=== PATIENT | male | born 1950 | race Caucasian/White ===

== ENCOUNTER 2019-05-23 08:00 | Day surgery (SDC) | payer MEDICARE, OTHER ==
[~2019-05-23] VITALS: Ht 185.4 cm; Wt 122.0 kg
[~2019-05-23 08:00] MED LIST: CREON PO; FISH1000 PO; FLAX PO; Fenofibrate134 MG PO; GLIP10 PO; INSLI75/25; LEVEMIR FL100 UNIT/1; LISI20 PO; LISI5 PO; Lovenox150 MG/ML INJ; METF500 PO; METO25ER PO; OMEG1CAP30; OMEG1CAP30 PO; OSTERA TABLET1 EACH PO; Prinivil10 MG PO; VITAMIN D5000 UNIT PO; WARF5 PO
--- NOTE | 2019-05-23 08:56 | NUR ---
Pt with clear lungs irregular heart beat and slight murmur.
--- NOTE | 2019-05-23 11:40 | NUR ---
TO RECOVERY ROOM BATHROOM VIA WHEELCHAIR. NO C/O CHEST PAIN. AGGRASTAT CONTINUES AT 22.5 ML/HR. TR BAND INTACT WITH 13 CC AIR.
--- NOTE | 2019-05-23 12:00 | NUR ---
livalo and plavix called to [facility]
[2019-05-23] MEDS ORDERED: CLOP75 PO (13:13)
[2019-05-23] MEDS ORDERED: LIVALO4 MG PO (13:13)
[2019-05-23] MEDS ORDERED: Aspirin EC81 MG PO (13:14)
--- NOTE | 2019-05-23 14:14 | NUR ---
DISCHARGE INSTRUCTIONS GIVEN TO PT AND WITH VERBAL AND WRITTEN UNDERSTANDING.
--- NOTE | 2019-05-23 14:27 | NUR ---
Dr. Hilario here to see pt.
--- NOTE | 2019-05-23 15:43 | NUR ---
2 CC AIR REMOVED FROM TR BAND. NO BLEEDING AT SITE.
--- NOTE | 2019-05-23 16:30 | NUR ---
Remainder of air removed from TR BAND. NO BLEEDING AT SITE. DRESSED FOR DISCHARGE.
--- NOTE | 2019-05-23 16:49 | NUR ---
CONNIE YADAV RN TO ASSUME CARE OF PATIENT.
--- NOTE | 2019-05-23 17:38 | NUR ---
IV DC'D, CATH INTACT. PT OUT TO CAR VIA W/C. PT AND SPOUSE HAVE VERBALIZED UNDERSTANDING OF DC INSTRUCTIONS AND FOLLOW UP INFO. VSS AT TIME OF DISCHARGE.
== END 2019-05-23 17:00 | disposition home or self-care (01) ==
LOC: MHTC 08:00
DX: I25.119 Atherosclerotic heart disease of native coronary artery with unspecified angina pectoris (principal); I25.84 Coronary atherosclerosis due to calcified coronary lesion; Z88.6 Allergy status to analgesic agent; Z88.8 Allergy status to other drugs, medicaments and biological substances; Z79.899 Other long term (current) drug therapy
CPT/HCPCS: 82947; 93454; C1725; C1769; C1874; C1887; C1894; C9600; J1644; J2250; J3010; J3246; J7030; Q9967

== ENCOUNTER 2020-08-18 11:48 | Emergency (ER) | payer MEDICARE, OTHER ==
[~2020-08-18] VITALS: Ht 182.9 cm; Wt 114.8 kg
[~2020-08-18 11:48] MED LIST changes: -ALBU90OI INH; -CLOP75 PO; -METO50ER PO; -NITR.4SL SL; -NITROGLYCERIN TD; -NOVOLOG MI100 UNIT/2 SC; -PRALUENT P75 MG/1 ML SC; -Prinivil10 MG PO; -WARF5 PO
[2020-08-18 12:29] LABS: BASOPHILS ABSOLUTE AUTO 0.01 K/mm3 (0.00-0.23); BASOPHILS PERCENT AUTO 0 % (0-2); EOSINOPHILS ABSOLUTE AUTO 0.04 K/mm3 (0.00-0.68); EOSINOPHILS PERCENT AUTO 1 % (0-6); Hematocrit 46.8 % (37.0-53.0); Hemoglobin 15.4 g/dL (13.5-17.5); IMMATURE GRAN ABSOLUTE AUTO 0.04 K/mm3 (0.00-0.10); IMMATURE GRAN PERCENT AUTO 1 % (0-1); LYMPHOCYTES ABSOLUTE AUTO 0.71 K/mm3 (0.84-5.20); LYMPHOCYTES PERCENT AUTO 19 % (21-46); MONOCYTES ABSOLUTE AUTO 0.35 K/mm3 (0.16-1.47); MONOCYTES PERCENT AUTO 9 % (4-13); Mean Corpuscular HGB 30.4 pg (26.0-34.0); Mean Corpuscular HGB Conc 32.9 g/dL (31.5-36.5); Mean Corpuscular Volume 93 fL (80-100); Mean Platelet Volume 9.9 fL (9.1-12.4); NEUTROPHILS ABSOLUTE AUTO 2.69 K/mm3 (1.96-9.15); NEUTROPHILS PERCENT AUTO 70 % (41-73); Platelet Count 106 K/mm3 (150-400); RDW Coefficient Variation 14.2 % (11.7-14.2); RDW Standard Deviation 48.7 fL (35.1-46.3); Red Blood Cell Count 5.06 M/mm3 (4.30-5.90); White Blood Cell Count 3.84 K/mm3 (4.00-11.30)
[2020-08-18 12:42] LABS: International Normalized Ratio 1.06; Prothrombin Time Results 11.3 Sec (9.7-11.5)
[2020-08-18] MEDS ORDERED: NITR.4SL SL (12:58)
[2020-08-18] MEDS ORDERED: PRALUENT P75 MG/1 ML SC (13:05)
[2020-08-18] MEDS ORDERED: METO50ER PO (13:26)
[2020-08-18] MEDS ORDERED: NITROGLYCERIN TD (13:27)
[2020-08-18] MEDS ORDERED: Prinivil10 MG PO (13:28)
[2020-08-18] MEDS ORDERED: NOVOLOG MI100 UNIT/2 SC (13:30)
[2020-08-18] MEDS ORDERED: WARF5 PO (13:31)
[2020-08-18] MEDS ORDERED: CLOP75 PO (13:31)
[2020-08-18] MEDS ORDERED: ALBU90OI INH (16:04)
== END 2020-08-18 16:46 | disposition home or self-care (01) ==
LOC: ER 11:48
PROVIDERS: Physician Assistant
DX: R07.9 Chest pain, unspecified (principal); R06.02 Shortness of breath; R10.12 Left upper quadrant pain; Z79.01 Long term (current) use of anticoagulants; Z79.4 Long term (current) use of insulin; Z79.899 Other long term (current) drug therapy; Z79.02 Long term (current) use of antithrombotics/antiplatelets; Z79.82 Long term (current) use of aspirin; Z88.5 Allergy status to narcotic agent; Z88.8 Allergy status to other drugs, medicaments and biological substances
CPT/HCPCS: 71046; 71260; 84484; 85025; 85610; 93005; 93010; 94640; 99285-25; A9270; Q9967

== ENCOUNTER → 2020-08-18 | Outpatient (CLI) | payer MEDICARE, OTHER ==
[~2020-08-18] MED LIST changes: +ALBU90OI INH; +Aspirin EC81 MG PO; +CLOP75 PO; +LIVALO4 MG PO; -METO25ER PO; +METO50ER PO; +NITR.4SL SL; +NITROGLYCERIN TD; +NOVOLOG MI100 UNIT/2 SC; +PRALUENT P75 MG/1 ML SC
[2020-08-18 11:53] LABS: Anion Gap 11 mmol/L (6-16); Blood Urea Nitrogen 14 mg/dL (8-24); Bun/Creatinine Ratio 12.6 (12.0-20.0); CO2, Blood 26 mmol/L (21-32); Calcium, Blood 8.8 mg/dL (8.5-10.1); Chloride, Blood 95 mmol/L (98-108); Creatinine, Blood 1.11 mg/dL (0.60-1.20); Glomerular Filtration Rate >60 (60-); Glucose, Blood 307 mg/dL (70-99); Potassium, Blood 4.2 mmol/L (3.5-5.5); Sodium, Blood 132 mmol/L (136-145)
[2020-08-18 11:56] LABS: Troponin I <0.017 ng/mL (0.000-0.040)
== END | disposition home or self-care (01) ==
LOC: LAB SHORT 11:31 → LAB EV 11:31
PROVIDERS: Chiropractor
DX: R06.09 Other forms of dyspnea (principal); R06.00 Dyspnea, unspecified; R07.9 Chest pain, unspecified
CPT/HCPCS: 80048; 83690; 84484; 85379

== ENCOUNTER 2020-08-20 07:19 | Inpatient (IN) | payer MEDICARE, OTHER ==
[~2020-08-20] VITALS: Ht 182.9 cm; Wt 112.1 kg
[~2020-08-20 07:19] MED LIST changes: +ALBU90OI INH; +CLOP75 PO; +METO50ER PO; +NITR.4SL SL; +NITROGLYCERIN TD; +NOVOLOG MI100 UNIT/2 SC; +PRALUENT P75 MG/1 ML SC; +Prinivil10 MG PO; +WARF5 PO
[2020-08-20 08:04] LABS: BASOPHILS ABSOLUTE AUTO 0.01 K/mm3 (0.00-0.23); BASOPHILS PERCENT AUTO 0 % (0-2); EOSINOPHILS ABSOLUTE AUTO 0.03 K/mm3 (0.00-0.68); EOSINOPHILS PERCENT AUTO 1 % (0-6); Hemoglobin 16.4 g/dL (13.5-17.5); IMMATURE GRAN ABSOLUTE AUTO 0.04 K/mm3 (0.00-0.10); IMMATURE GRAN PERCENT AUTO 1 % (0-1); LYMPHOCYTES ABSOLUTE AUTO 0.85 K/mm3 (0.84-5.20); LYMPHOCYTES PERCENT AUTO 21 % (21-46); MONOCYTES ABSOLUTE AUTO 0.37 K/mm3 (0.16-1.47); MONOCYTES PERCENT AUTO 9 % (4-13); Mean Corpuscular HGB 30.9 pg (26.0-34.0); Mean Corpuscular HGB Conc 34.2 g/dL (31.5-36.5); Mean Corpuscular Volume 91 fL (80-100); Mean Platelet Volume 10.4 fL (9.1-12.4); NEUTROPHILS ABSOLUTE AUTO 2.72 K/mm3 (1.96-9.15); NEUTROPHILS PERCENT AUTO 68 % (41-73); Platelet Count 116 K/mm3 (150-400); RDW Standard Deviation 46.8 fL (35.1-46.3); White Blood Cell Count 4.02 K/mm3 (4.00-11.30)
[2020-08-20 08:11] LABS: International Normalized Ratio 1.13
[2020-08-20 08:17] LABS: Alanine Aminotransfer (ALT/SGP 47 U/L (12-78); Albumin/Globulin Ratio 0.7 (0.8-1.8); Alk Phos 31 U/L (50-136); Anion Gap 16 mmol/L (6-16); Aspartate Aminotrans (AST/SGOT 36 U/L (12-37); Bilirubin, Total 0.7 mg/dL (0.1-1.0); Blood Urea Nitrogen 14 mg/dL (8-24); Bun/Creatinine Ratio 14.8 (12.0-20.0); CO2, Blood 19 mmol/L (21-32); Chloride, Blood 102 mmol/L (98-108); Creatinine, Blood 0.94 mg/dL (0.60-1.20); Globulin, Blood 4.1 g/dL (2.2-4.0); Glomerular Filtration Rate >60 (60-); Glucose, Blood 305 mg/dL (70-99); Potassium, Blood 4.1 mmol/L (3.5-5.5); Sodium, Blood 137 mmol/L (136-145); Total Protein, Blood 7.1 g/dL (6.4-8.2); Troponin I <0.015 ng/mL (0.000-0.040)
[2020-08-20 13:14] LABS: Base Excess Venous -16.2 mmol/L; Bicarbonate Venous 12.8 mmol/L (24.0-30.0); PCO2 Venous 41.2 mmHg (38-42); PO2 Venous 47.8 mmHg (38-42); pH Blood Venous 7.12 (7.34-7.37)
--- NOTE | 2020-08-20 18:39 | NUR ---
ICU ADMISSION / SHIFT SUMMARY: REPORT RECEIVED FROM JOSLYN Sherman RN IN ED. PT ARRIVED TO UNIT AT APPROX 1320. ON ARRIVAL, THE PT IS A&O, PLEASANT & COOPERATIVE. HE IS SOMEWHAT TREMULOUS ON EXERTION & STS FEELING FATIGUED OVERALL. LS ARE DIM IN BASES, PT ON RA W/ O2 SATS > 92%. MONITOR SHOWS ST W/ HR 100s, BP STABLE. PT HAS BEEN HAVING MULTIPLE EPISODES OF DIARRHEA x3 DAYS. VOIDS W/O DIFFICULTY. SKIN CONDITION OVERALL CDI. NO ACUTE CHANGES SINCE PT ARRIVAL TO UNIT. HE REMAINS A&O, CONTINUES TO DENY PAIN. HE STS THAT SOB HAS WORSENED SLIGHTLY "THE STEROIDS WEAR OFF" BUT OVERALL HE FEELS BETTER THAN BEFORE ARRIVAL AT HOSPITAL. HE CONTINUES ON RA W/ O2 SATS > 92%. HR NOW DOWN TO 90s AFTER RECEIVING IVF BOLUS PER ORDERS. HE IS TOLERATING PO INTAKE WELL & DENIES NAUSEA, STS HAVING POOR APPETITE RECENTLY. VOIDING URINE W/O DIFFICULTY. SKIN CONDITION OVERALL UNCHANGED. 1 STAFF ASSIST FOR TX OOB TO CONTROL LINES/ CORDS. WILL CONTINUE TO MONITOR & REPORT OFF TO ONCOMING RN.
--- NOTE | 2020-08-20 21:00 | NUR ---
ASSUMPTION OF CARE PT ALERT AND ORIENTED x4, DENIES PAIN, REPORTS INCREASING SOB, DECLINES SUPPLEMENTAL OXYGEN, O2 SATURATIONS> 90% ON RA. DISCUSSED WITH PT DIFFERENT OPTIONS OF PRONING AND INCENTIVE SPIROMETER FOR INCREASED OXYGENATION TO POSSIBLY HELP WITH SOB, PT DECLINES AT THIS TIME. MONITOR SHOWS SINUS RHYTHM, HR 70'S-80'S, BP STABLE. PT AMBULATES WITH SBA TO BEDSIDE TOILET, REPORTS DIARRHEA WHICH PT STS IS NORMAL FOR HIM AND IS RELATED TO CHRONIC PANCREATITIS AND INSULIN. PT PROVIDED WITH A SANDWICH UPON REQUEST, TOLERATING PO INTAKE WELL. CALL LIGHT WITHIN REACH, PT USING APPROPRIATELY.
--- NOTE | 2020-08-21 03:06 | NUR ---
SHIFT SUMMARY PT RESTED WELL T/O SHIFT, REMAINS ON ROOM AIR WITH O2 SATURATIONS> 90%, PT TOLERATES SHORT AMBULATION TO BEDSIDE TOILET, REPORTS FEELING TIRED WITH AMBULATION BUT O2 SATURATIONS MAINTAIN >90%. MONITOR SHOWS SINUS RHYTHM WITH HR 70'S-80'S, BP STABLE. PT REMAINS AFEBRILE. PT TOLERATING PO INTAKE. CALL LIGHT WITHIN REACH, USING APPROPRIATELY.
--- NOTE | 2020-08-21 03:55 | NUR ---
ASSUMPTION OF CARE ASSUMED CARE OF PT @ 0300. REPORT RECEIVED FROM DOUG ROMERO. PT A&OX4. CALM AND COOPERATIVE. COMPLAINING OF IV PLACEMENT, PUMP CONTINUES TO ALARM DUE TO AC IV. NEW IV ESTABLISHED. CURRENTLY ON RA WITH O2 SATS >90%. BECOMES SHORT OF BREATH UPON AMBULATION TO THE COMMODE. WHILE AMBULATING, O2 SATS REMAIN >90%. DENIES OXYGEN. PT TREMULOUS UPON EXERTION. VSS. WILL CONTINUE TO MONITOR CLOSELY.
[2020-08-21 04:04] LABS: BASOPHILS ABSOLUTE AUTO 0.01 K/mm3 (0.00-0.23); BASOPHILS PERCENT AUTO 0 % (0-2); EOSINOPHILS PERCENT AUTO 0 % (0-6); Hematocrit 43.5 % (37.0-53.0); Hemoglobin 14.5 g/dL (13.5-17.5); IMMATURE GRAN ABSOLUTE AUTO 0.04 K/mm3 (0.00-0.10); IMMATURE GRAN PERCENT AUTO 1 % (0-1); LYMPHOCYTES ABSOLUTE AUTO 0.73 K/mm3 (0.84-5.20); LYMPHOCYTES PERCENT AUTO 26 % (21-46); MONOCYTES ABSOLUTE AUTO 0.26 K/mm3 (0.16-1.47); MONOCYTES PERCENT AUTO 9 % (4-13); Mean Corpuscular HGB 30.5 pg (26.0-34.0); Mean Corpuscular HGB Conc 33.3 g/dL (31.5-36.5); Mean Corpuscular Volume 92 fL (80-100); Mean Platelet Volume 10.2 fL (9.1-12.4); NEUTROPHILS ABSOLUTE AUTO 1.79 K/mm3 (1.96-9.15); NEUTROPHILS PERCENT AUTO 63 % (41-73); Platelet Count 114 K/mm3 (150-400); RDW Coefficient Variation 13.7 % (11.7-14.2); RDW Standard Deviation 46.5 fL (35.1-46.3); Red Blood Cell Count 4.75 M/mm3 (4.30-5.90); White Blood Cell Count 2.83 K/mm3 (4.00-11.30)
[2020-08-21 04:16] LABS: International Normalized Ratio 1.2; Prothrombin Time Results 12.7 Sec (9.7-11.5)
[2020-08-21 04:20] LABS: Alanine Aminotransfer (ALT/SGP 38 U/L (12-78); Albumin, Blood 2.5 g/dL (3.4-5.0); Albumin/Globulin Ratio 0.7 (0.8-1.8); Alk Phos 29 U/L (50-136); Anion Gap 12 mmol/L (6-16); Aspartate Aminotrans (AST/SGOT 20 U/L (12-37); Bilirubin, Total 0.4 mg/dL (0.1-1.0); Blood Urea Nitrogen 20 mg/dL (8-24); Bun/Creatinine Ratio 26.7 (12.0-20.0); CO2, Blood 16 mmol/L (21-32); Calcium, Blood 7.9 mg/dL (8.5-10.1); Chloride, Blood 109 mmol/L (98-108); Creatinine, Blood 0.75 mg/dL (0.60-1.20); Globulin, Blood 3.6 g/dL (2.2-4.0); Glomerular Filtration Rate >60 (60-); Glucose, Blood 287 mg/dL (70-99); Magnesium, Blood 2.1 mg/dL (1.6-2.4); Phosphorus, Blood 1.8 mg/dL (2.5-4.9); Potassium, Blood 4.8 mmol/L (3.5-5.5); Sodium, Blood 137 mmol/L (136-145); Total Protein, Blood 6.1 g/dL (6.4-8.2)
--- NOTE | 2020-08-21 06:28 | NUR ---
SHIFT SUMMARY NO CHANGES FROM PREVIOUS NOTE. PT STATED "I FEEL BETTER NOW THAN I DID YESTERDAY EVENING". WILL CONTINUE TO MONITOR. REPORT TO ONCOMING NURSE.
--- NOTE | 2020-08-21 09:57 | NUR ---
PT RESTING IN BED. STATES HE IS FEELING SIGNIFICANTLY BETTER THAN HE WAS YESTERDAY. STATES SOB WITH EXERTION IS IMPROVING. 1 PERSON STANDBY ASSIST WHEN OOB TO ASSIST WITH LINES AND CORDS. PT STATES HE HAS ONLY PRODUCED SCANT AMT OF SPUTUM SO FAR. ON RA WITH SPO2 >90%. PT IS ABLE TO MOVE SELF AROUND IN BED. NO SIGN OF DISTRESS. USES CALL LIGHT APPROPRIATELY.
--- NOTE | 2020-08-21 18:38 | NUR ---
SUMMARY PT DID WELL TODAY. NOT REQUIRING ANY OXYGEN. SOB WITH EXERTION HAS IMPROVED. OOB WITH 1 PERSON STANDBY MAINLY TO ASSIST WITH LINES AND CORDS. GLUCOSE HAS BEEN HIGH ALL DAY. SPOKE WITH DR. CARNES WHO ORDERED HSS INSULIN. DR. CARNES ALSO WANTS TO KEEP THE NOVOLIN 70/30 BID. NO SIGN OF DISTRESS. CALL LIGHT IN REACH AND PT USES APPROPRIATELY.
--- NOTE | 2020-08-21 21:00 | NUR ---
ASSUMPTION OF CARE PT ALERT AND ORIENTED x4, O2 SATURATIONS> 90% ON RA, TOLERATES ACTIVITY WELL, CONTINUES TO REPORT FEELING TIRED. VSS. PT TOLERATING PO INTAKE, DENIES ANY GI/ ISSUES. PT ANXIOUS TO BE DISCHARGED HOME, DISCUSSED WITH PT REMDESIVIR COURSE AND NEED TO FINISH ALL DOSES PRIOR TO GOING HOME, PT VERBALIZES UNDERSTANDING. CALL LIGHT WITHIN REACH, PT USING APPROPRIATELY.
[2020-08-22 03:29] LABS: BASOPHILS ABSOLUTE AUTO 0.01 K/mm3 (0.00-0.23); BASOPHILS PERCENT AUTO 0 % (0-2); EOSINOPHILS PERCENT AUTO 0 % (0-6); Hematocrit 38.7 % (37.0-53.0); Hemoglobin 13.8 g/dL (13.5-17.5); IMMATURE GRAN ABSOLUTE AUTO 0.03 K/mm3 (0.00-0.10); IMMATURE GRAN PERCENT AUTO 1 % (0-1); LYMPHOCYTES ABSOLUTE AUTO 0.87 K/mm3 (0.84-5.20); LYMPHOCYTES PERCENT AUTO 16 % (21-46); MONOCYTES ABSOLUTE AUTO 0.33 K/mm3 (0.16-1.47); MONOCYTES PERCENT AUTO 6 % (4-13); Mean Corpuscular HGB 31.5 pg (26.0-34.0); Mean Corpuscular HGB Conc 35.7 g/dL (31.5-36.5); Mean Corpuscular Volume 88 fL (80-100); Mean Platelet Volume 10.6 fL (9.1-12.4); NEUTROPHILS PERCENT AUTO 77 % (41-73); Platelet Count 118 K/mm3 (150-400); RDW Coefficient Variation 13.5 % (11.7-14.2); RDW Standard Deviation 44.2 fL (35.1-46.3); Red Blood Cell Count 4.38 M/mm3 (4.30-5.90); White Blood Cell Count 5.44 K/mm3 (4.00-11.30)
[2020-08-22 03:43] LABS: International Normalized Ratio 1.32; Prothrombin Time Results 13.9 Sec (9.7-11.5)
[2020-08-22 03:45] LABS: Anion Gap 7 mmol/L (6-16); Blood Urea Nitrogen 17 mg/dL (8-24); Bun/Creatinine Ratio 27.2 (12.0-20.0); CO2, Blood 22 mmol/L (21-32); Calcium, Blood 8.1 mg/dL (8.5-10.1); Chloride, Blood 109 mmol/L (98-108); Creatinine, Blood 0.63 mg/dL (0.60-1.20); Glomerular Filtration Rate >60 (60-); Glucose, Blood 222 mg/dL (70-99); Potassium, Blood 3.6 mmol/L (3.5-5.5); Sodium, Blood 138 mmol/L (136-145)
[2020-08-22 04:30] LABS: Phosphorus, Blood 1.6 mg/dL (2.5-4.9)
--- NOTE | 2020-08-22 05:57 | NUR ---
SHIFT SUMMARY PT DID NOT SLEEP WELL THIS SHIFT, PT REPORTS HE OFTEN DOESN'T SLEEP WELL AT HOME WELL, DECLINES ASKING DOCTOR FOR SLEEPING MEDICATIONS, STS HE DOES NOT WANT TO TAKE ANYTHING HE DOES NOT HAVE TO. OVERALL PT REPORTS FEELING MUCH BETTER, DENIES SOB, O2 SATURATIONS MAINTAINED> 90% ON RA T/O NIGHT AND WITH ACTIVITY. MONITOR SHOWS SINUS RHYTHM, HR 50'S-70'S, BP STABLE. PT REMAINS AFEBRILE. PT DENIES GI/ ISSUES, TOLERATES PO INTAKE. MORNING LABS SHOWED LOW PHOSPHOROUS, SEE NEW ORDERS FOR POTASSIUM PHOSPHATE. CALL LIGHT WITHIN REACH, PT USING APPROPRIATELY.
--- NOTE | 2020-08-22 08:14 | NUR ---
PT RESTING IN BED. STATES HE DID NOT SLEEP WELL LAST NIGHT BUT FEELS GOOD THIS AM. SOB IS IMPROVED AND PT CAN GET TO BATHROOM WITHOUT BEING OVERLY EXERTED. ON RA SPO2 GREATER THAN 90% EVEN WITH AMBULATION. NO SIGN OF DISTRESS, NO COMPLAINTS.
--- NOTE | 2020-08-22 10:06 | NUR ---
PT WAS TRANSFERED TO MEDICAL FLOOR ROOM 358 ACCOMPANIED BY FRAN AND ALMA RN. PT ABLE TO TRANSFER SELF TO BED. NO SIGN OF DISTRESS. REPORT GIVEN TO CHELSEA CAMACHO WHO WILL ASSUME CARE. PT HAS UPDATED HIS VIA PHONE.
--- NOTE | 2020-08-22 19:27 | NUR ---
SHIFT SUMMARY JOSLYN ARRIVED FROM ICU THIS AFTERNOON. ON ROOM AIR, NO SOB WITH WALKING AROUND IN ROOM. CBGS HIGH, INSULIN GIVEN. DENIED PAIN. INDEP IN ROOM, TOOK MEDS PRESCRIBED. REPORT GIVEN TO NIGHT RN
--- NOTE | 2020-08-23 00:26 | NUR ---
CONTINUES ON ISOLATION PRECAUTIONS FOR COVID 19. ALERT AND ORIENTED. UP AD SHARLENE IN ROOM WITHOUT NOTED DIFFICULTIES. CALL LIGHT IN REACH.
[2020-08-23 05:51] LABS: International Normalized Ratio 1.44; Prothrombin Time Results 15.1 Sec (9.7-11.5)
--- NOTE | 2020-08-23 06:56 | NUR ---
SHIFT SUMMARY HAS BEEN RESTING QUIETLY WITH FEW INTERRUPTIONS THIS SHIFT. CALL LIGHT IN REACH. ISOLATION PRECAUTIONS MAINTAINED FOR COVID 19.
--- NOTE | 2020-08-23 19:11 | NUR ---
SUMMARY- PT A/O X4, INDEPENDANT IN ROOM. TOOK A SHOWER TODAY. TOLERATING FOOD AND FLUIDS. LUNGS CLEAR, ON ROOM AIR SATTING 96%. sTATES HIS BREATHING IS MUCH IMPROVED AND NO SOB OR WHEEZE. TOLERATING FOOD AND FLUIDS. VSS, AFIBRILE. LIKELY HOME TOMORROW ACCORDING TO DR. STEPHEN MORELAND WHO SAW PT THIS AM. WILL REPORT TO DOUG.
--- NOTE | 2020-08-24 05:00 | NUR ---
SUMMARY: A/OX4, INDEPENDENT AND CALLS APPROPRIATELY TO SPECIFY NEEDS. HE REMAINS IN ISOLATION FOR COVID BUT IS A PROBABLE D/C HOME TODAY. LS ARE CLEAR ON RA W/SPO2 WNL, AND NO SOB OR RESPIRATORY DISTRESS OBSERVED. HE REMAINS S.HANNA-NSR W/HR 50'S-60'S BPM. VSS/AFEBRILE, NO ACUTE CHANGES. HE DENIED PAIN AND ALL OTHER COMPLAINTS. WCTM AND REPORT TO DAY RN.
[2020-08-24 05:43] LABS: International Normalized Ratio 1.89; Prothrombin Time Results 19.5 Sec (9.7-11.5)
--- NOTE | 2020-08-24 16:37 | NUR ---
PT DISCHARGED 1230 WITH DC INSTRUCTIONS. SENT HOME WITH BELONGINGS. W/C ESCORT OUT TO CAR, TO DRIVE PT HOME.
== END 2020-08-24 12:31 | disposition home or self-care (01) | DRG 871 ==
LOC: ER 07:19 → ICUW 11:53 → PCU 11:53 → ICUW 13:09 → MEDS 08-22 09:50 → ENPENDDIS 08-24 10:06 → MEDS 08-24 12:31
PROVIDERS: Emergency Medicine; Family Medicine; Nurse Practitioner Acute Care; Pharmacist; ADMIT Family Medicine
PROC: XW033E5 Introduction of Remdesivir Anti-infective into Peripheral Vein, Percutaneous Approach, New Technology Group 5 (ICD-10-PCS; principal; 2020-08-20)
PROC: XW033E5 Introduction of Remdesivir Anti-infective into Peripheral Vein, Percutaneous Approach, New Technology Group 5 (ICD-10-PCS; 2020-08-21)
PROC: XW033E5 Introduction of Remdesivir Anti-infective into Peripheral Vein, Percutaneous Approach, New Technology Group 5 (ICD-10-PCS; 2020-08-22)
PROC: XW033E5 Introduction of Remdesivir Anti-infective into Peripheral Vein, Percutaneous Approach, New Technology Group 5 (ICD-10-PCS; 2020-08-23)
PROC: XW033E5 Introduction of Remdesivir Anti-infective into Peripheral Vein, Percutaneous Approach, New Technology Group 5 (ICD-10-PCS; 2020-08-24)
DX: A41.89 Other specified sepsis (principal); J96.01 Acute respiratory failure with hypoxia; U07.1 COVID-19; J12.89 Other viral pneumonia; E87.2 Acidosis; J98.11 Atelectasis; Z86.711 Personal history of pulmonary embolism; R65.20 Severe sepsis without septic shock; I10 Essential (primary) hypertension; E11.9 Type 2 diabetes mellitus without complications; E78.5 Hyperlipidemia, unspecified; I25.10 Atherosclerotic heart disease of native coronary artery without angina pectoris; Z95.5 Presence of coronary angioplasty implant and graft; Z79.4 Long term (current) use of insulin; E11.65 Type 2 diabetes mellitus with hyperglycemia
CPT/HCPCS: 36415; 71045; 80048; 80053; 82803; 82947; 83605; 83735; 83880; 84100; 84145; 84484; 85025; 85610; 85730; 87040; 93005; 93010; 94644; 96374; 99285-25; A9270-GY; J1100; J1650; J1815; J7030; J7060; U0004

== ENCOUNTER 2021-10-19 20:06 | Emergency (ER) | payer MEDICARE, OTHER ==
[~2021-10-19] VITALS: Ht 182.9 cm; Wt 124.7 kg
[2021-10-19 20:50] LABS: BASOPHILS PERCENT AUTO 1 % (0-2); EOSINOPHILS ABSOLUTE AUTO 0.22 K/mm3 (0.00-0.68); EOSINOPHILS PERCENT AUTO 2 % (0-6); Hematocrit 50.4 % (37.0-53.0); Hemoglobin 17.9 g/dL (13.5-17.5); IMMATURE GRAN ABSOLUTE AUTO 0.03 K/mm3 (0.00-0.10); IMMATURE GRAN PERCENT AUTO 0 % (0-1); LYMPHOCYTES ABSOLUTE AUTO 2.16 K/mm3 (0.84-5.20); LYMPHOCYTES PERCENT AUTO 24 % (21-46); MONOCYTES ABSOLUTE AUTO 0.57 K/mm3 (0.16-1.47); MONOCYTES PERCENT AUTO 6 % (4-13); Mean Corpuscular HGB 30.9 pg (26.0-34.0); Mean Corpuscular HGB Conc 35.5 g/dL (31.5-36.5); Mean Corpuscular Volume 87 fL (80-100); Mean Platelet Volume 9.8 fL (9.1-12.4); NEUTROPHILS ABSOLUTE AUTO 6.13 K/mm3 (1.96-9.15); NEUTROPHILS PERCENT AUTO 67 % (41-73); Platelet Count 176 K/mm3 (150-400); RDW Coefficient Variation 13.2 % (11.7-14.2); RDW Standard Deviation 41.8 fL (35.1-46.3); White Blood Cell Count 9.21 K/mm3 (4.00-11.30)
[2021-10-19 21:18] LABS: Alanine Aminotransfer (ALT/SGP 55 U/L (12-78); Albumin, Blood 3.4 g/dL (3.4-5.0); Alk Phos 38 U/L (50-136); Anion Gap 10 mmol/L (6-16); Aspartate Aminotrans (AST/SGOT 28 U/L (12-37); Bilirubin, Total 0.7 mg/dL (0.1-1.0); Blood Urea Nitrogen 19 mg/dL (8-24); Bun/Creatinine Ratio 18.1 (12.0-20.0); CO2, Blood 25 mmol/L (21-32); Calcium, Blood 9.4 mg/dL (8.5-10.1); Chloride, Blood 103 mmol/L (98-108); Creatinine, Blood 1.05 mg/dL (0.60-1.20); Globulin, Blood 3.5 g/dL (2.2-4.0); Glomerular Filtration Rate >60 (60-); Glucose, Blood 324 mg/dL (70-99); Potassium, Blood 4.1 mmol/L (3.5-5.5); Sodium, Blood 138 mmol/L (136-145); Total Protein, Blood 6.9 g/dL (6.4-8.2); Troponin I <0.015 ng/mL (0.000-0.040)
[2021-10-19 21:51] LABS: Influenza A, PCR NEGATIVE (NEGATIVE); Influenza B, PCR NEGATIVE (NEGATIVE); Resp Syncytial Virus, PCR NEGATIVE (NEGATIVE); SARS-Cov-2 (COVID-19) PCR, MMC NEGATIVE (NEGATIVE)
[2021-10-19 22:45] LABS: International Normalized Ratio 1.51; Prothrombin Time Results 15.4 Sec (9.7-11.5)
== END 2021-10-19 23:39 | disposition home or self-care (01) ==
LOC: ER 20:06
PROVIDERS: Emergency Medicine; Physician Assistant
DX: R00.0 Tachycardia, unspecified (principal); E11.65 Type 2 diabetes mellitus with hyperglycemia; R79.1 Abnormal coagulation profile; Z88.8 Allergy status to other drugs, medicaments and biological substances; Z88.5 Allergy status to narcotic agent; Z79.899 Other long term (current) drug therapy; Z79.4 Long term (current) use of insulin; Z79.01 Long term (current) use of anticoagulants; I10 Essential (primary) hypertension
CPT/HCPCS: 0241U; 36415; 71260; 80053; 83690; 83880; 84443; 84484; 85025; 85610; 93005; 93010; J2060; Q9967

== ENCOUNTER → 2021-11-23 | Outpatient (CLI) | payer MEDICARE, OTHER ==
[2021-11-23 12:34] LABS: BASOPHILS ABSOLUTE AUTO 0.06 K/mm3 (0.00-0.23); BASOPHILS PERCENT AUTO 0 % (0-2); EOSINOPHILS ABSOLUTE AUTO 0.07 K/mm3 (0.00-0.68); EOSINOPHILS PERCENT AUTO 0 % (0-6); Hematocrit 47.7 % (37.0-53.0); Hemoglobin 16.8 g/dL (13.5-17.5); IMMATURE GRAN PERCENT AUTO 1 % (0-1); LYMPHOCYTES ABSOLUTE AUTO 1.24 K/mm3 (0.84-5.20); LYMPHOCYTES PERCENT AUTO 8 % (21-46); MONOCYTES ABSOLUTE AUTO 1.14 K/mm3 (0.16-1.47); MONOCYTES PERCENT AUTO 7 % (4-13); Mean Corpuscular HGB 31.6 pg (26.0-34.0); Mean Corpuscular HGB Conc 35.2 g/dL (31.5-36.5); Mean Corpuscular Volume 90 fL (80-100); Mean Platelet Volume 9.8 fL (9.1-12.4); NEUTROPHILS ABSOLUTE AUTO 13.79 K/mm3 (1.96-9.15); NEUTROPHILS PERCENT AUTO 84 % (41-73); Platelet Count 202 K/mm3 (150-400); RDW Coefficient Variation 13.2 % (11.7-14.2); RDW Standard Deviation 43.6 fL (35.1-46.3); Red Blood Cell Count 5.31 M/mm3 (4.30-5.90)
[2021-11-23 12:51] LABS: Albumin, Blood 3.3 g/dL (3.4-5.0); Albumin/Globulin Ratio 0.8 (0.8-1.8); Bilirubin, Total 1.1 mg/dL (0.1-1.0); Calcium, Blood 9.1 mg/dL (8.5-10.1); Creatinine, Blood 1.45 mg/dL (0.60-1.20); Globulin, Blood 3.9 g/dL (2.2-4.0); Potassium, Blood 4.8 mmol/L (3.5-5.5); Total Protein, Blood 7.2 g/dL (6.4-8.2)
[2021-11-23 13:28] LABS: International Normalized Ratio 1.09; Prothrombin Time Results 11.4 Sec (9.7-11.5)
== END | disposition home or self-care (01) ==
LOC: LAB SHORT 12:29 → LAB 12:29
PROVIDERS: Physician Assistant Medical
DX: I48.91 Unspecified atrial fibrillation (principal); M25.519 Pain in unspecified shoulder
CPT/HCPCS: 80053; 85025; 85610

== ENCOUNTER 2021-11-29 16:48 | Inpatient (IN) | payer MEDICARE, OTHER ==
[~2021-11-29] VITALS: Ht 185.4 cm; Wt 118.8 kg
[2021-11-29 17:35] LABS: BASOPHILS ABSOLUTE AUTO 0.12 K/mm3 (0.00-0.23); BASOPHILS PERCENT AUTO 1 % (0-2); EOSINOPHILS ABSOLUTE AUTO 0.21 K/mm3 (0.00-0.68); EOSINOPHILS PERCENT AUTO 2 % (0-6); Hematocrit 49.4 % (37.0-53.0); Hemoglobin 16.8 g/dL (13.5-17.5); IMMATURE GRAN ABSOLUTE AUTO 0.15 K/mm3 (0.00-0.10); IMMATURE GRAN PERCENT AUTO 1 % (0-1); LYMPHOCYTES PERCENT AUTO 13 % (21-46); MONOCYTES ABSOLUTE AUTO 0.72 K/mm3 (0.16-1.47); MONOCYTES PERCENT AUTO 6 % (4-13); Mean Corpuscular HGB 30.3 pg (26.0-34.0); Mean Corpuscular Volume 89 fL (80-100); Mean Platelet Volume 10.1 fL (9.1-12.4); NEUTROPHILS ABSOLUTE AUTO 9.97 K/mm3 (1.96-9.15); NEUTROPHILS PERCENT AUTO 78 % (41-73); Platelet Count 255 K/mm3 (150-400); RDW Coefficient Variation 12.4 % (11.7-14.2); RDW Standard Deviation 40.9 fL (35.1-46.3); Red Blood Cell Count 5.54 M/mm3 (4.30-5.90); White Blood Cell Count 12.77 K/mm3 (4.00-11.30)
[2021-11-29 17:54] LABS: Alanine Aminotransfer (ALT/SGP 36 U/L (12-78); Albumin, Blood 2.9 g/dL (3.4-5.0); Albumin/Globulin Ratio 0.5 (0.8-1.8); Alk Phos 45 U/L (50-136); Anion Gap 9 mmol/L (6-16); Aspartate Aminotrans (AST/SGOT 23 U/L (12-37); Bilirubin, Total 0.7 mg/dL (0.1-1.0); Blood Urea Nitrogen 15 mg/dL (8-24); Bun/Creatinine Ratio 15.5 (12.0-20.0); CO2, Blood 24 mmol/L (21-32); Calcium, Blood 9.7 mg/dL (8.5-10.1); Chloride, Blood 98 mmol/L (98-108); Creatinine, Blood 0.97 mg/dL (0.60-1.20); Globulin, Blood 5.3 g/dL (2.2-4.0); Glomerular Filtration Rate >60 (60-); Glucose, Blood 373 mg/dL (70-99); Potassium, Blood 4.7 mmol/L (3.5-5.5); Sodium, Blood 131 mmol/L (136-145); Total Protein, Blood 8.2 g/dL (6.4-8.2)
[2021-11-30 00:01] LABS: International Normalized Ratio 1.15
[2021-11-30 04:49] LABS: BASOPHILS ABSOLUTE AUTO 0.09 K/mm3 (0.00-0.23); BASOPHILS PERCENT AUTO 1 % (0-2); EOSINOPHILS ABSOLUTE AUTO 0.28 K/mm3 (0.00-0.68); EOSINOPHILS PERCENT AUTO 3 % (0-6); Hematocrit 43.4 % (37.0-53.0); Hemoglobin 14.9 g/dL (13.5-17.5); IMMATURE GRAN ABSOLUTE AUTO 0.14 K/mm3 (0.00-0.10); IMMATURE GRAN PERCENT AUTO 1 % (0-1); LYMPHOCYTES ABSOLUTE AUTO 1.41 K/mm3 (0.84-5.20); LYMPHOCYTES PERCENT AUTO 14 % (21-46); MONOCYTES ABSOLUTE AUTO 0.65 K/mm3 (0.16-1.47); MONOCYTES PERCENT AUTO 6 % (4-13); Mean Corpuscular HGB 30.3 pg (26.0-34.0); Mean Corpuscular HGB Conc 34.3 g/dL (31.5-36.5); Mean Corpuscular Volume 88 fL (80-100); NEUTROPHILS ABSOLUTE AUTO 7.75 K/mm3 (1.96-9.15); NEUTROPHILS PERCENT AUTO 75 % (41-73); Platelet Count 210 K/mm3 (150-400); RDW Coefficient Variation 12.6 % (11.7-14.2); RDW Standard Deviation 40.8 fL (35.1-46.3); Red Blood Cell Count 4.92 M/mm3 (4.30-5.90); White Blood Cell Count 10.32 K/mm3 (4.00-11.30)
[2021-11-30 05:23] LABS: Anion Gap 9 mmol/L (6-16); Blood Urea Nitrogen 17 mg/dL (8-24); Bun/Creatinine Ratio 16.8 (12.0-20.0); CO2, Blood 27 mmol/L (21-32); Calcium, Blood 8.6 mg/dL (8.5-10.1); Chloride, Blood 100 mmol/L (98-108); Creatinine, Blood 1.01 mg/dL (0.60-1.20); Glomerular Filtration Rate >60 (60-); Glucose, Blood 274 mg/dL (70-99); Potassium, Blood 3.7 mmol/L (3.5-5.5); Sodium, Blood 136 mmol/L (136-145)
--- NOTE | 2021-11-30 06:23 | NUR ---
0025 - Pt arrived to unit from ED on stretcher. Unsteady gait to bed. 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 Pt educated on use of call light, calling for assistance, and bed alarm set. VSS. RUE with redness, no open wounds. PRN pain medication given with pt reported relief. Pt NPO and updated on plan of care.
--- NOTE | 2021-11-30 07:39 | NUR ---
ASSUMPTION OF CARE Pt is a/o x 4 this morning. He has limited ROM to his right arm. It is swollen, and warm to the touch. He is NPO this morning for an I/D with Dr Salinas. IV fluids are infusing as ordered. He is still in his street clothes and was offered a gown but declined. He is able to make his needs known and calls frequently.
[2021-11-30 13:51] LABS: Influenza A, PCR NEGATIVE (NEGATIVE); Influenza B, PCR NEGATIVE (NEGATIVE); Resp Syncytial Virus, PCR NEGATIVE (NEGATIVE); SARS-Cov-2 (COVID-19) PCR, MMC NEGATIVE (NEGATIVE)
--- NOTE | 2021-11-30 16:45 | NUR ---
SHIFT SUMMARY Pt is a/o x 4. He has no complaints. He does report some pain if he moves his right arm but is ok with it at rest. Dr Noriega saw him today and wrapped his arm and we propped it up on a pillow. No I/D was done today but maybe tomorrow. He should be NPO @ midnight in case they decide to do the procedure. IV fluids/ABO continue to infuse as ordered. He has been ambulating to the toilet to void with SBA for line management. He is able to make his needs known and calls when needed.
--- NOTE | 2021-12-01 06:04 | NUR ---
1900 - ASSUMED CARE OF PT. VSS OVERNIGHT, PT A&OX4, CALM AND COOPERATIVE. VSS PER PT TREND. SR/BBB ON TELEMETRY. RUE ELEVATED AND WRAPPED PER MD. PRN PAIN MEDICATION GIVEN WITH RELIEF (SEE EMAR FOR DETAILS). WILL PASS ON TO DAY RN
[2021-12-01] MEDS ORDERED: VISBIOME 112.51 EACH PO (12:14)
[2021-12-01] MEDS ORDERED: CEPH500 PO (12:16)
== END 2021-12-01 13:30 | disposition home or self-care (01) | DRG 603 ==
LOC: ER 16:48 → PCU 22:58 → ER 11-30 00:11 → PCU 11-30 00:23
PROVIDERS: Orthopaedic Surgery; Student in an Organized Health Care Education/Training Program; ADMIT Family Medicine
DX: L03.113 Cellulitis of right upper limb (principal); E87.1 Hypo-osmolality and hyponatremia; K86.1 Other chronic pancreatitis; L02.413 Cutaneous abscess of right upper limb; I10 Essential (primary) hypertension; K52.9 Noninfective gastroenteritis and colitis, unspecified; Z20.822 Contact with and (suspected) exposure to COVID-19; E11.9 Type 2 diabetes mellitus without complications; E78.5 Hyperlipidemia, unspecified; I48.0 Paroxysmal atrial fibrillation; Z86.711 Personal history of pulmonary embolism; Z95.5 Presence of coronary angioplasty implant and graft; Z90.49 Acquired absence of other specified parts of digestive tract; Z98.890 Other specified postprocedural states; Z88.6 Allergy status to analgesic agent; Z88.8 Allergy status to other drugs, medicaments and biological substances
CPT/HCPCS: 0241U; 36415; 73201; 76882; 80048; 80053; 82947; 83605; 85025; 85610; 87040; 96365-59; 96375-59; 99285-25; A9270; J0696; J1815; J1885; J2250; J2543; J2704; J3010; J7030; J7050; Q9967

== ENCOUNTER 2022-09-03 04:04 | Emergency (ER) | payer MEDICARE, OTHER ==
[~2022-09-03] VITALS: Ht 185.4 cm; Wt 126.1 kg
[~2022-09-03 04:04] MED LIST changes: +CEPH500 PO; +VISBIOME 112.51 EACH PO
[2022-09-03 05:16] LABS: BASOPHILS ABSOLUTE AUTO 0.06 K/mm3 (0.00-0.23); BASOPHILS PERCENT AUTO 1 % (0-2); EOSINOPHILS ABSOLUTE AUTO 0.19 K/mm3 (0.00-0.68); EOSINOPHILS PERCENT AUTO 2 % (0-6); Hematocrit 47.7 % (37.0-53.0); Hemoglobin 16.1 g/dL (13.5-17.5); IMMATURE GRAN ABSOLUTE AUTO 0.07 K/mm3 (0.00-0.10); IMMATURE GRAN PERCENT AUTO 1 % (0-1); LYMPHOCYTES ABSOLUTE AUTO 1.07 K/mm3 (0.84-5.20); LYMPHOCYTES PERCENT AUTO 13 % (21-46); MONOCYTES PERCENT AUTO 5 % (4-13); Mean Corpuscular HGB 30.3 pg (26.0-34.0); Mean Corpuscular HGB Conc 33.8 g/dL (31.5-36.5); Mean Corpuscular Volume 90 fL (80-100); Mean Platelet Volume 10.1 fL (9.1-12.4); NEUTROPHILS ABSOLUTE AUTO 6.73 K/mm3 (1.96-9.15); NEUTROPHILS PERCENT AUTO 79 % (41-73); Platelet Count 184 K/mm3 (150-400); RDW Coefficient Variation 13.3 % (11.7-14.2); RDW Standard Deviation 43.8 fL (35.1-46.3); Red Blood Cell Count 5.31 M/mm3 (4.30-5.90); White Blood Cell Count 8.52 K/mm3 (4.00-11.30)
[2022-09-03 05:30] LABS: International Normalized Ratio 3.42; Prothrombin Time Results 33.1 Sec (9.7-11.5)
== END 2022-09-03 05:51 | disposition home or self-care (01) ==
LOC: ER 04:04
PROVIDERS: Emergency Medicine
DX: S20.212A Contusion of left front wall of thorax, initial encounter (principal); M54.9 Dorsalgia, unspecified; R79.1 Abnormal coagulation profile; I10 Essential (primary) hypertension; E11.9 Type 2 diabetes mellitus without complications; E78.5 Hyperlipidemia, unspecified; Z88.5 Allergy status to narcotic agent; Z88.8 Allergy status to other drugs, medicaments and biological substances; Z79.4 Long term (current) use of insulin; W19.XXXA Unspecified fall, initial encounter
CPT/HCPCS: 36415; 71046; 72080; 85025; 85610; A9270

== ENCOUNTER 2022-12-16 19:33 | Observation (INO) | payer MEDICARE, OTHER ==
[~2022-12-16] VITALS: Ht 182.9 cm; Wt 84.4 kg
[2022-12-16 20:07] LABS: BASOPHILS ABSOLUTE AUTO 0.08 K/mm3 (0.00-0.23); BASOPHILS PERCENT AUTO 1 % (0-2); EOSINOPHILS PERCENT AUTO 2 % (0-6); Hematocrit 46.4 % (37.0-53.0); Hemoglobin 16.3 g/dL (13.5-17.5); IMMATURE GRAN ABSOLUTE AUTO 0.03 K/mm3 (0.00-0.10); IMMATURE GRAN PERCENT AUTO 0 % (0-1); LYMPHOCYTES ABSOLUTE AUTO 1.58 K/mm3 (0.84-5.20); LYMPHOCYTES PERCENT AUTO 19 % (21-46); MONOCYTES ABSOLUTE AUTO 0.47 K/mm3 (0.16-1.47); MONOCYTES PERCENT AUTO 6 % (4-13); Mean Corpuscular HGB 30.8 pg (26.0-34.0); Mean Corpuscular HGB Conc 35.1 g/dL (31.5-36.5); Mean Corpuscular Volume 88 fL (80-100); Mean Platelet Volume 10.3 fL (9.1-12.4); NEUTROPHILS ABSOLUTE AUTO 6.05 K/mm3 (1.96-9.15); NEUTROPHILS PERCENT AUTO 72 % (41-73); Platelet Count 158 K/mm3 (150-400); RDW Coefficient Variation 13.5 % (11.7-14.2); White Blood Cell Count 8.41 K/mm3 (4.00-11.30)
[2022-12-16 20:40] LABS: Albumin, Blood 3.2 g/dL (3.4-5.0); Albumin/Globulin Ratio 0.8 (0.8-1.8); Bilirubin, Total 0.4 mg/dL (0.1-1.0); Bun/Creatinine Ratio 18.9 (12.0-20.0); Calcium, Blood 9.1 mg/dL (8.5-10.1); Creatinine, Blood 0.95 mg/dL (0.60-1.20); Globulin, Blood 3.8 g/dL (2.2-4.0); Potassium, Blood 4.3 mmol/L (3.5-5.5)
[2022-12-16 23:33] LABS: International Normalized Ratio 1.1; Prothrombin Time Results 11.5 Sec (9.7-11.5)
[2022-12-17 00:14] LABS: CHOL/HDL RATIO 6.2; Cholesterol 237 mg/dL (50-200); HDL Cholesterol 38 mg/dL (>39); LDL/HDL RATIO Unable to Calculate; Low Density Lipoprotein Chol Unable to Calculate mg/dL (0-110); Triglycerides 512 mg/dL (30-160); Very Low Density Lipoprot Chol Unable to Calculate mg/dL (6-32)
--- NOTE | 2022-12-17 05:47 | NUR ---
PATIENT SLEPT FOR SOMEOF THE NIGHT, ORIENTED X4, MAKES NO COMPLAINTS AND COOPERATIVE WITH CARE. TELE NS PER JANN TECH, BLE EDEMA 2+, AND TRACE GENERALIZED. ABD DISTENDED, REPORTS MULTI BMs YESTERDAY, DIARRHEA FROM INSULIN. LUNG SOUNDS ARE CLEAR, NO COUGH OR SOB. MRI PAPERWORK COMPLETE AND IN CHART. ECHO AND MRI TO BE COMPLETED TODAY. NO DEFICITES NOTED. 1X ASSIST WITH CONTACT GUARD DUE TO REPORTED FALLS. WILL CONT TO MONITOR.
--- NOTE | 2022-12-17 08:00 | NUR ---
pt a/ox3, pleasant and cooperative with care, follows commands well, denies pain, states he's doing ok, lungs are clear t/o, a bit dim in bases, on r/a, resp even and unlabored, no cough noted, hrr, tele in place running sr per monitor, see strip, b/l edema noted, ppp+2, cap refill <3sec, vs stable, afebrile, iv site is clear and patent, bt x4, abd flat soft nontender, voids without diff, skin c/w/d, maew, kasandra, call light in reach.
[2022-12-17] MEDS ORDERED: CREON DR 6,0001 EACH PO (08:45)
[2022-12-17 11:56] LABS: International Normalized Ratio 1.09; Prothrombin Time Results 11.4 Sec (9.7-11.5)
--- NOTE | 2022-12-17 15:47 | NUR ---
pt left via wheelchair for mri
[2022-12-17] MEDS ORDERED: ENOX100I SC (17:39)
--- NOTE | 2022-12-17 18:35 | NUR ---
Pt has been discharged to home, went over instructions with him, he verbalized understanding, [facility] faxed to [facility], instructed him how to give himself injections, he felt he can do it, iv removed intact, left via wheelchair with manufacturing supervisor and in attendence with all his belongings.
== END 2022-12-17 18:29 | disposition home or self-care (01) ==
LOC: ER 19:33 → MEDS 19:34
PROVIDERS: Emergency Medicine; Student in an Organized Health Care Education/Training Program; ADMIT Student in an Organized Health Care Education/Training Program
DX: G45.9 Transient cerebral ischemic attack, unspecified (principal); I10 Essential (primary) hypertension; I48.0 Paroxysmal atrial fibrillation; E11.42 Type 2 diabetes mellitus with diabetic polyneuropathy; Z88.8 Allergy status to other drugs, medicaments and biological substances; Z88.5 Allergy status to narcotic agent; Z79.899 Other long term (current) drug therapy; Z79.01 Long term (current) use of anticoagulants; Z79.4 Long term (current) use of insulin
CPT/HCPCS: 36415; 70450; 70496; 70498; 70551; 71045; 80053; 80061; 82947; 83036; 85025; 85610; 93005; 93010; 93306; 96372; 97161; 99285-25; A9270; G0378; J1650; J1815; Q9967

== ENCOUNTER 2023-05-09 09:30 | Day surgery (SDC) | payer MEDICARE, OTHER ==
[~2023-05-09] VITALS: Ht 182.9 cm; Wt 97.7 kg
[~2023-05-09 09:30] MED LIST changes: +CREON DR 6,0001 EACH PO; +ENOX100I SC
[2023-05-09] MEDS ORDERED: FREESTYLE LIBR1 EAC7 (11:12)
[2023-05-09] MEDS ORDERED: [UNRECOGNIZED DRUG - OTHER] (11:12)
[2023-05-09] MEDS ORDERED: SODIUM (11:12)
[2023-05-09] MEDS ORDERED: INSULIN REGULAR (11:13)
[2023-05-09] MEDS ORDERED: INSULIN ISOPHANE (11:13)
[2023-05-09] MEDS ORDERED: [UNRECOGNIZED DRUG - OTHER] (11:13)
[2023-05-09] MEDS ORDERED: CREON DR 12,001 EACH PO (11:13)
[2023-05-09] MEDS ORDERED: TRAM50 (11:14)
[2023-05-09 12:52] VITALS: BP 111/74
--- NOTE | 2023-05-09 12:55 | NUR ---
05/09/23 1255 ANDREA BYRD NO IV ACCESS CHARTING AVAILABLE. IV DC'D. CATH INTACT
== END 2023-05-09 12:52 | disposition home or self-care (01) ==
LOC: ORSCSDS 09:30
PROVIDERS: Specialist
PROC: 0DJD8ZZ Inspection of Lower Intestinal Tract, Via Natural or Artificial Opening Endoscopic (ICD-10-PCS; principal; 2023-05-09 11:00)
DX: Z12.11 Encounter for screening for malignant neoplasm of colon (principal); R19.5 Other fecal abnormalities; Z86.010 Personal history of colon polyps; D37.4 Neoplasm of uncertain behavior of colon; K64.8 Other hemorrhoids; Z86.718 Personal history of other venous thrombosis and embolism; Z79.01 Long term (current) use of anticoagulants; E11.9 Type 2 diabetes mellitus without complications; I10 Essential (primary) hypertension; Z79.899 Other long term (current) drug therapy; E78.5 Hyperlipidemia, unspecified; I48.91 Unspecified atrial fibrillation; Z79.4 Long term (current) use of insulin
CPT/HCPCS: 82947; J2704; J7120

== ENCOUNTER 2023-05-15 01:06 | Observation (INO) | payer MEDICARE, OTHER ==
[~2023-05-15] VITALS: Ht 182.9 cm; Wt 122.0 kg
[~2023-05-15 01:06] MED LIST changes: +CREON DR 12,001 EACH PO; +FREESTYLE LIBR1 EAC7; +INSULIN ISOPHANE; +INSULIN REGULAR; +SODIUM; +TRAM50; +[UNRECOGNIZED DRUG - OTHER]; +[UNRECOGNIZED DRUG - OTHER]
[2023-05-15 03:07] LABS: BASOPHILS ABSOLUTE AUTO 0.06 K/mm3 (0.00-0.23); BASOPHILS PERCENT AUTO 1 % (0-2); EOSINOPHILS PERCENT AUTO 2 % (0-6); Hematocrit 44.6 % (37.0-53.0); Hemoglobin 15.6 g/dL (13.5-17.5); IMMATURE GRAN ABSOLUTE AUTO 0.03 K/mm3 (0.00-0.10); IMMATURE GRAN PERCENT AUTO 0 % (0-1); LYMPHOCYTES ABSOLUTE AUTO 1.16 K/mm3 (0.84-5.20); LYMPHOCYTES PERCENT AUTO 11 % (21-46); MONOCYTES ABSOLUTE AUTO 0.52 K/mm3 (0.16-1.47); MONOCYTES PERCENT AUTO 5 % (4-13); Mean Corpuscular Volume 89 fL (80-100); Mean Platelet Volume 10.8 fL (9.1-12.4); NEUTROPHILS ABSOLUTE AUTO 8.81 K/mm3 (1.96-9.15); NEUTROPHILS PERCENT AUTO 82 % (41-73); Platelet Count 169 K/mm3 (150-400); RDW Coefficient Variation 13.6 % (11.7-14.2); RDW Standard Deviation 44.2 fL (35.1-46.3); Red Blood Cell Count 5.03 M/mm3 (4.30-5.90); White Blood Cell Count 10.78 K/mm3 (4.00-11.30)
[2023-05-15 03:19] LABS: Albumin, Blood 3.2 g/dL (3.4-5.0); Albumin/Globulin Ratio 0.8 (0.8-1.8); Bilirubin, Total 0.5 mg/dL (0.1-1.0); Bun/Creatinine Ratio 15.6 (12.0-20.0); Calcium, Blood 9.3 mg/dL (8.5-10.1); Creatinine, Blood 0.96 mg/dL (0.60-1.20); Globulin, Blood 3.8 g/dL (2.2-4.0); Magnesium, Blood 1.9 mg/dL (1.6-2.4); Potassium, Blood 4.4 mmol/L (3.5-5.5)
[2023-05-15 05:41] VITALS: BP 164/87
[2023-05-15] MEDS ORDERED: WARF5 PO (05:50)
[2023-05-15] MEDS ORDERED: ASCO500 PO (05:56)
[2023-05-15 07:12] VITALS: BP 150/86
[2023-05-15 07:26] LABS: Anti-Xa UFH, PHA Monitoring <0.10 IU/mL; International Normalized Ratio 0.97; Prothrombin Time Results 10.2 Sec (9.7-11.5)
--- NOTE | 2023-05-15 07:34 | NUR ---
SHIFT SUMMARY ADMITTED THIS AM FOR SBO. VSS. AOX4. DENIES N/V UPON ARRIVING TO FLOOR, REPORTS 10/25 MID UPPER ABD PAIN, WAS MEDICATED IN ER & PT DENIED FURTHER NEED FOR PAIN MEDS. ABD MOD DISTENDED, TENDER TO PALPATION. HYPERACTIVE BT. REPORTS LAST BM YESTERDAY & IT WAS CONSTIPATED/HARD. STATES LAST MEAL WAS LUNCH YESTERDAY, OTHERWISE HASNT FELT LIKE EATING, WHICH IS UNLIKE HIM. +2 EDEMA LLE, TRACE EDEMA RLE. CALL LIGHT IN REACH.
--- NOTE | 2023-05-15 08:59 | NUR ---
DR WOLF IN TO SEE PT. PT NOW TO IMAGING
--- NOTE | 2023-05-15 09:28 | NUR ---
PT BACK TO ROOM
--- NOTE | 2023-05-15 11:22 | NUR ---
PT TO IMAGING
[2023-05-15 12:39] VITALS: BP 149/88
--- NOTE | 2023-05-15 13:16 | NUR ---
PT HAVING MULTIPLE BMS.
[2023-05-15 14:14] VITALS: BP 138/88
[2023-05-15] MEDS ORDERED: MIRALAX17 GM PO (14:18)
--- NOTE | 2023-05-15 14:54 | NUR ---
DISCHARGED DC'D IV, CATHETER INTACT. REVIEWED DC INSTRUCTIONS W/PT AND SPOUSE, VERBALIZED UNDERSTANDING. PRESCRIPTION FAXED TO [facility]. PT DECLINED WC, LEFT UNIT BY AMBULATION, ACCOMPANIED BY SPOUSE WITH POSSESSIONS AND DC INSTRUCTIONS IN HAND.
== END 2023-05-15 14:53 | disposition home or self-care (01) ==
LOC: ER 01:06 → SURS 01:07
PROVIDERS: Student in an Organized Health Care Education/Training Program; ADMIT Internal Medicine
DX: K56.609 Unspecified intestinal obstruction, unspecified as to partial versus complete obstruction (principal); K59.09 Other constipation; E78.5 Hyperlipidemia, unspecified; I10 Essential (primary) hypertension; K63.5 Polyp of colon
CPT/HCPCS: 36415; 71046; 74177; 74250; 80053; 82947; 83690; 83735; 84484; 85025; 85520; 85610; 85730; 93005; 93010; 96361; 96365; 96366; 96374-59; 96375; 99285-25; A9270; G0378; J1644; J1815; J1885; J7030; Q9967

== ENCOUNTER → 2025-02-24 | Outpatient (CLI) | payer MEDICARE, OTHER ==
[~2025-02-24] MED LIST changes: +ASCO500 PO; +MIRALAX17 GM PO
[2025-02-24 09:35] LABS: BASOPHILS ABSOLUTE AUTO 0.07 K/mm3 (0.00-0.23); BASOPHILS PERCENT AUTO 1 % (0-2); EOSINOPHILS ABSOLUTE AUTO 0.53 K/mm3 (0.00-0.68); EOSINOPHILS PERCENT AUTO 7 % (0-6); Hemoglobin 14.7 g/dL (13.5-17.5); IMMATURE GRAN ABSOLUTE AUTO 0.02 K/mm3 (0.00-0.10); IMMATURE GRAN PERCENT AUTO 0 % (0-1); LYMPHOCYTES ABSOLUTE AUTO 1.58 K/mm3 (0.84-5.20); LYMPHOCYTES PERCENT AUTO 21 % (21-46); MONOCYTES ABSOLUTE AUTO 0.45 K/mm3 (0.16-1.47); MONOCYTES PERCENT AUTO 6 % (4-13); Mean Corpuscular HGB 30.6 pg (26.0-34.0); Mean Corpuscular HGB Conc 34.2 g/dL (31.5-36.5); Mean Corpuscular Volume 89 fL (80-100); Mean Platelet Volume 10.1 fL (9.1-12.4); NEUTROPHILS ABSOLUTE AUTO 4.88 K/mm3 (1.96-9.15); NEUTROPHILS PERCENT AUTO 65 % (41-73); Platelet Count 158 K/mm3 (150-400); RDW Coefficient Variation 13.9 % (11.7-14.2); RDW Standard Deviation 45.1 fL (35.1-46.3); Red Blood Cell Count 4.81 M/mm3 (4.30-5.90); White Blood Cell Count 7.53 K/mm3 (4.00-11.30)
[2025-02-24 09:49] LABS: Albumin, Blood 3.5 g/dL (3.4-5.0); Bilirubin, Total 0.5 mg/dL (0.1-1.0); Bun/Creatinine Ratio 12.8 (12.0-20.0); Calcium, Blood 9.3 mg/dL (8.5-10.1); Creatinine, Blood 1.17 mg/dL (0.60-1.20); Globulin, Blood 3.6 g/dL (2.2-4.0); Potassium, Blood 3.8 mmol/L (3.5-5.5); Total Protein, Blood 7.1 g/dL (6.4-8.2)
== END ==
LOC: LAB SHORT 09:30 → LAB 09:30
PROVIDERS: Internal Medicine
DX: R07.9 Chest pain, unspecified (principal)
CPT/HCPCS: 80053; 83880; 84484; 85025

== ENCOUNTER 2025-04-16 09:19 | Day surgery (SDC) | payer MEDICARE, OTHER ==
[~2025-04-16] VITALS: Ht 182.9 cm; Wt 120.9 kg
[2025-04-16] MEDS ORDERED: KETO15TC (09:44)
[2025-04-16] MEDS ORDERED: TURMERIC ROOT5000 GM (09:45)
[2025-04-16] MEDS ORDERED: MEGA 3-6-9 SO1233 MG (09:46)
[2025-04-16] MEDS ORDERED: FREESTYLE LIBR1 EA10 (09:46)
[2025-04-16] MEDS ORDERED: EZET10 (09:48)
[2025-04-16] MEDS ORDERED: CARV25 (09:48)
[2025-04-16] MEDS ORDERED: LOSA50 (09:55)
[2025-04-16] MEDS ORDERED: ELIQUIS5 M2 (09:55)
[2025-04-16] MEDS ORDERED: FURO20 (09:55)
[2025-04-16] MEDS ORDERED: TOUJEO MAX300 UNIT/2 (09:55)
[2025-04-16] MEDS ORDERED: [UNRECOGNIZED DRUG - OTHER] (09:56)
[2025-04-16 12:55] VITALS: BP 112/57
== END 2025-04-16 12:45 | disposition home or self-care (01) ==
LOC: ORSCSDS 09:19
PROVIDERS: Internal Medicine Gastroenterology
PROC: 0DBK8ZX Excision of Ascending Colon, Via Natural or Artificial Opening Endoscopic, Diagnostic (ICD-10-PCS; principal; 2025-04-16 10:45)
PROC: 0DBL8ZX Excision of Transverse Colon, Via Natural or Artificial Opening Endoscopic, Diagnostic (ICD-10-PCS; principal; 2025-04-16 10:45)
DX: Z12.11 Encounter for screening for malignant neoplasm of colon (principal); R19.5 Other fecal abnormalities; Z86.0100 Personal history of colon polyps, unspecified; D12.2 Benign neoplasm of ascending colon; D12.3 Benign neoplasm of transverse colon; Z90.49 Acquired absence of other specified parts of digestive tract; E11.9 Type 2 diabetes mellitus without complications; I48.91 Unspecified atrial fibrillation; E78.5 Hyperlipidemia, unspecified; I10 Essential (primary) hypertension; I25.10 Atherosclerotic heart disease of native coronary artery without angina pectoris; E66.01 Morbid (severe) obesity due to excess calories; Z68.36 Body mass index [BMI] 36.0-36.9, adult; Z79.4 Long term (current) use of insulin; Z79.01 Long term (current) use of anticoagulants; Z79.84 Long term (current) use of oral hypoglycemic drugs; Z79.899 Other long term (current) drug therapy
CPT/HCPCS: 82947; 88305; J2704; J7120

== ENCOUNTER → 2025-09-12 | Outpatient (CLI) | payer MEDICARE, OTHER ==
[~2025-09-12] MED LIST changes: +CARV25; +ELIQUIS5 M2; +EZET10; +FREESTYLE LIBR1 EA10; +FURO20; +KETO15TC; +LOSA50; +MEGA 3-6-9 SO1233 MG; +TOUJEO MAX300 UNIT/2; +TURMERIC ROOT5000 GM; +[UNRECOGNIZED DRUG - OTHER]
[2025-09-12 12:42] LABS: BASOPHILS ABSOLUTE AUTO 0.07 K/mm3 (0.00-0.23); BASOPHILS PERCENT AUTO 1 % (0-2); EOSINOPHILS ABSOLUTE AUTO 0.31 K/mm3 (0.00-0.68); EOSINOPHILS PERCENT AUTO 4 % (0-6); Hematocrit 40.5 % (37.0-53.0); Hemoglobin 14.1 g/dL (13.5-17.5); IMMATURE GRAN ABSOLUTE AUTO 0.02 K/mm3 (0.00-0.10); IMMATURE GRAN PERCENT AUTO 0 % (0-1); LYMPHOCYTES ABSOLUTE AUTO 1.36 K/mm3 (0.84-5.20); LYMPHOCYTES PERCENT AUTO 19 % (21-46); MONOCYTES ABSOLUTE AUTO 0.42 K/mm3 (0.16-1.47); MONOCYTES PERCENT AUTO 6 % (4-13); Mean Corpuscular HGB Conc 34.8 g/dL (31.5-36.5); Mean Corpuscular Volume 88 fL (80-100); NEUTROPHILS ABSOLUTE AUTO 5.05 K/mm3 (1.96-9.15); NEUTROPHILS PERCENT AUTO 70 % (41-73); NRBC ABSOLUTE 0.00 K/mm3 (0.00-0.02); NRBC Auto 0.0 /100 WBC (0.0-0.2); Platelet Count 148 K/mm3 (150-400); RDW Coefficient Variation 13.6 % (11.7-14.2); RDW Standard Deviation 43.7 fL (35.1-46.3)
[2025-09-12 12:43] LABS: Alanine Aminotransfer (ALT/SGP 36.0 U/L (12-78); Albumin, Blood 3.2 g/dL (3.4-5.0); Albumin/Globulin Ratio 0.9 (0.8-1.8); Anion Gap 8.0 mmol/L (3-11); Aspartate Aminotrans (AST/SGOT 22.0 U/L (12-37); Bilirubin, Total 0.7 mg/dL (0.1-1.0); Blood Urea Nitrogen 18.0 mg/dL (8-24); CO2, Blood 32.0 mmol/L (21-32); Calcium, Blood 9.1 mg/dL (8.5-10.1); Chloride, Blood 105.0 mmol/L (98-108); Creatinine, Blood 1.35 mg/dL (0.60-1.20); Globulin, Blood 3.6 g/dL (2.2-4.0); Glucose, Blood 149.0 mg/dL (70-99); Potassium, Blood 3.8 mmol/L (3.5-5.5); Sodium, Blood 141.0 mmol/L (136-145); Total Protein, Blood 6.8 g/dL (6.4-8.2)
== END ==
LOC: LAB SHORT 12:26 → LAB 12:26
PROVIDERS: Physician Assistant
DX: R06.00 Dyspnea, unspecified (principal)
CPT/HCPCS: 80053; 83880; 84484; 85025